=== PATIENT | female | born 1980 | race Caucasian/White ===

== ENCOUNTER 2020-03-13 14:04 | Emergency (ER) | payer BC, OTHER ==
--- NOTE | 2020-03-13 14:36 | CR ---
PROCEDURE INFORMATION: Exam: XR Left Shoulder Exam date and time: 03/13/2020 2:20 PM Age: 40 years old Clinical indication: Other: Fall/pain; Additional info: Sledding accident, hit in left ribs/shoulder TECHNIQUE: Imaging protocol: XR Left shoulder. Views: 2 or more views. COMPARISON: No relevant prior studies available. FINDINGS: Bones/joints: Multiple views of the left shoulder demonstrate no evidence for acute fracture. Contour abnormality of the midclavicle compatible with healed trauma. Acromioclavicular joint is in anatomic alignment. Glenohumeral joint is in anatomic alignment no rib fracture identified in the left upper ribs. Soft tissues: Normal. IMPRESSION: 1. No acute osseous injury identified. 2. Healed/old left midclavicle fracture
--- NOTE | 2020-03-13 14:38 | CR ---
PROCEDURE INFORMATION: Exam: XR Left Ribs with PA Chest, 3 Views Exam date and time: 03/13/2020 2:24 PM Age: 40 years old Clinical indication: Other: Pain; Additional info: Sledding accident, hit in left ribs/shoulder TECHNIQUE: Imaging protocol: XR Left ribs 3 views with PA chest. COMPARISON: No relevant prior studies available. FINDINGS: Lungs: Unremarkable. No consolidation. Pleural space: Unremarkable. No pleural effusion. No pneumothorax. Heart/Mediastinum: Unremarkable. No cardiomegaly. Bones/joints: A mildly displaced left 6th rib fracture is identified. No additional fractures are present. IMPRESSION: 1. Mildly displaced left 6th rib fracture. No hemothorax, pneumothorax or pulmonary contusion present.
[2020-03-13] MEDS ORDERED: Acetaminophen/HYDROcodone 325-10 MG Tab PO ONE (14:41)
[2020-03-13] MEDS ORDERED: Ondansetron 4 MG Tab.DIS PO ONE (14:41)
--- NOTE | 2020-03-13 14:41 | EDM.PDOC ---
Scribed by Nuria Ortiz 03/13/20 2191 for Uma Brown MD ED HPI GENERAL MEDICAL PROBLEM - General Chief Complaint: Back Pain or Injury Stated Complaint: UNKNOWN Time Seen by Provider: 03/13/20 14:17 Source of Information: Reports: Patient, RN, RN Notes Reviewed History Limitations: Reports: No Limitations - History of Present Illness INITIAL COMMENTS - FREE TEXT/NARRATIVE: Patient presents to ED by POV complaining of left shoulder and left rib pain after a sledding accident. Patient was reportedly at the bottom of a hill when her son crashed into her striking her on her left side. No reported loss of consciousness. Pain is constant worse with movement 7/10 and sharp in nature. Denies CTLS pain, blurry vision, shortness of breath, trouble swallowing, abdominal pain, incontinence, lower extremity pain. Onset: Today Duration: Constant Location: Reports: Chest, Upper Extremity, Left Quality: Reports: Sharp Severity: Moderate Improves with: Reports: None Worsens with: Reports: Movement Associated Symptoms: Reports: No Other Symptoms Left Chest Pain Score (Numeric/FACES): 9 - Related Data Allergies Allergy/AdvReac Type Severity Reaction Status Date / Time No Known Allergies Allergy Verified 03/13/20 14:13 Home Meds: Home Meds B,C/Folic/Zinc/Copper Ox/Vit E [Stress B-Complex Tablet] 1 tab PO DAILY 03/13/20 [History] Canagliflozin [Invokana] 300 mg PO DAILY 03/13/20 [History] Exenatide [Byetta] 12 mcg SUBCUT BID 03/13/20 [History] Simvastatin 10 mg PO DAILY 03/13/20 [History] sitaGLIPtin Phos/Metformin HCl [Janumet 50-1,000 MG] 1 tab PO BID 03/13/20 [History] ED ROS GENERAL - Review of Systems Review Of Systems: Comprehensive ROS is negative, except as noted in HPI. ED EXAM, GENERAL - Physical Exam Exam: See Below Exam Limited By: No Limitations General Appearance: Alert, WD/WN, No Apparent Distress Nose: Normal Inspection, Normal Mucosa, No Blood Throat/Mouth: Normal Inspection, Normal Lips, Normal Teeth, Normal Gums, Normal Oropharynx, Normal Voice, No Airway Compromise Head: Atraumatic, Normocephalic Neck: Normal Inspection, Supple, Non-Tender, Full Range of Motion Respiratory/Chest: No Respiratory Distress, Lungs Clear, Normal Breath Sounds, No Accessory Muscle Use, Chest Non-Tender Cardiovascular: Regular Rate, Rhythm Peripheral Pulses: 4+: Radial (L), Radial (R) Back Exam: Normal Inspection, Full Range of Motion Extremities: Normal Inspection, Normal Range of Motion, Other (left shoulder tender to palpation) Neurological: Alert, Oriented Psychiatric: Normal Affect, Normal Mood Skin Exam: Warm, Dry, Intact, Normal Color, No Rash Course - Vital Signs Last Recorded V/S: Last Vital Signs Temp 98.6 F 03/13/20 14:10 Pulse 122 H 03/13/20 14:10 Resp 20 03/13/20 14:10 BP 144/80 H 03/13/20 14:10 Pulse Ox 100 03/13/20 14:10 - Orders/Labs/Meds Orders: Active Orders 24 hr Category Date Time Status Ribs 2V w Chest Lt [CR] Stat Exams 03/13/20 14:14 Taken - Radiology Interpretation Free Text/Narrative:: [facility] Final Radiology Report Call: [phone] assistance Online chat: [email or web address] Name: TONY VALENZUELA Age: 40Years F Date: 03/13/2020 SSN: -- : 1980 Study: CR SHOULDER COMP LT Requesting Physician: UMA BROWN Images: 2 Addl Studies: Provided Clinical History: Sledding accident, hit in left ribs/shoulder Contrast: Contrast Medium: Contrast Amount: Contrast Method: CONFIDENTIALITY STATEMENT This report is intended only for use by the referring physician, and only in accordance with law. If you received this in error, call [phone]. Page 1 of 1 PROCEDURE INFORMATION: Exam: XR Left Shoulder Exam date and time: 03/13/2020 2:20 PM Age: 40 years old Clinical indication: Other: Fall/pain; Additional info: Sledding accident, hit in left ribs/shoulder TECHNIQUE: Imaging protocol: XR Left shoulder. Views: 2 or more views. COMPARISON: No relevant prior studies available. FINDINGS: Bones/joints: Multiple views of the left shoulder demonstrate no evidence for acute fracture. Contour abnormality of the midclavicle compatible with healed trauma. Acromioclavicular joint is in anatomic alignment. Glenohumeral joint is in anatomic alignment no rib fracture identified in the left upper ribs. Soft tissues: Normal. IMPRESSION: 1. No acute osseous injury identified. 2. Healed/old left midclavicle fracture Thank you for allowing us to participate in the care of your patient. Dictated and Authenticated by: Omid Huizar MD 03/13/2020 2:36 PM Central Time ([place] & [place]) [facility] Final Radiology Report Call: [phone] assistance Online chat: [email or web address] Name: TONY VALENZUELA Age: 40Years F Date: 03/13/2020 SSN: -- : 1980 Study: CR RIBS 2V W CHEST LT Requesting Physician: MUA BROWN Images: 3 Addl Studies: Provided Clinical History: Sledding accident, hit in left ribs/shoulder Contrast: Contrast Medium: Contrast Amount: Contrast Method: CONFIDENTIALITY STATEMENT This report is intended only for use by the referring physician, and only in accordance with law. If you received this in error, call [phone]. Page 1 of 1 PROCEDURE INFORMATION: Exam: XR Left Ribs with PA Chest, 3 Views Exam date and time: 03/13/2020 2:24 PM Age: 40 years old Clinical indication: Other: Pain; Additional info: Sledding accident, hit in left ribs/shoulder TECHNIQUE: Imaging protocol: XR Left ribs 3 views with PA chest. COMPARISON: No relevant prior studies available. FINDINGS: Lungs: Unremarkable. No consolidation. Pleural space: Unremarkable. No pleural effusion. No pneumothorax. Heart/Mediastinum: Unremarkable. No cardiomegaly. Bones/joints: A mildly displaced left 6th rib fracture is identified. No additional fractures are present. IMPRESSION: 1. Mildly displaced left 6th rib fracture. No hemothorax, pneumothorax or pulmonary contusion present. Thank you for allowing us to participate in the care of your patient. Dictated and Authenticated by: Omid Huizar MD 03/13/2020 2:38 PM Central Time ([place] & [place]) Departure - Departure Time of Disposition: 14:39 Disposition: Home, Self-Care 01 Condition: Good Clinical Impression: Left rib fracture Qualifiers: Encounter type: initial encounter Rib fracture type: single rib Fracture type: closed Qualified Code(s): S22.32XA - Fracture of one rib, left side, initial encounter for closed fracture - Discharge Information *PRESCRIPTION DRUG MONITORING PROGRAM REVIEWED*: No *COPY OF PRESCRIPTION DRUG MONITORING REPORT IN PATIENT SIMON: No Instructions: Rib Fracture Forms: ED Department Discharge Additional Instructions: Rx: Hydrocodone APAP 5mg/325mg *Do not drive or work while under the influence of this medication. Practice deep breathing with incentive spirometer even though breathing may be painful. Follow up in clinic in 1 to 2 weeks if needed. Sepsis Event Note (ED) - Evaluation Sepsis Screening Result: No Definite Risk - Focused Exam Vital Signs: Vital Signs Temp Pulse Resp BP Pulse Ox 03/13/20 14:10 98.6 F 122 H 20 144/80 H 100 - My Orders Last 24 Hours: My Active Orders 03/13/20 14:14 Ribs 2V w Chest Lt [CR] Stat - Assessment/Plan Last 24 Hours: My Active Orders 03/13/20 14:14 Ribs 2V w Chest Lt [CR] Stat I have read and agree with the documentation that has been completed regarding this visit. By signing this record, I attest that the documentation was completed in my physical presence and is an accurate record of the encounter.
== END 2020-03-13 14:59 | disposition home or self-care (01) ==
LOC: DL.ED 14:04
DX: S22.32XA Fracture of one rib, left side, initial encounter for closed fracture (principal); Z79.899 Other long term (current) drug therapy; W51.XXXA Accidental striking against or bumped into by another person, initial encounter
CPT/HCPCS: 71101-LT; 73030-LT; 99283; 99283-25